=== PATIENT | female | born 1970 | race African-American/Black ===

== ENCOUNTER 2020-04-02 02:09 | Emergency (ER) | payer BC, OTHER ==
[~2020-04-02] VITALS: Ht 165.1 cm; Wt 81.9 kg
[~2020-04-02 02:09] MED LIST: LISI-378; OXYC1TAB15 PO
[2020-04-02 02:55] VITALS: BP 154/87
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
== END 2020-04-02 03:55 | disposition home or self-care (01) ==
LOC: ER 02:09
DX: R42 Dizziness and giddiness (principal); T43.215A Adverse effect of selective serotonin and norepinephrine reuptake inhibitors, initial encounter; I10 Essential (primary) hypertension; Z95.5 Presence of coronary angioplasty implant and graft; Z88.1 Allergy status to other antibiotic agents; Y92.89 Other specified places as the place of occurrence of the external cause
CPT/HCPCS: 36415; 99283

== ENCOUNTER 2020-04-06 16:17 | Emergency (ER) | payer SELFPAY ==
[~2020-04-06] VITALS: Ht 165.1 cm; Wt 90.9 kg
[2020-04-06 17:11] LABS: BASO % 1 % (0-3); EOS # 0.2 x10^3/uL (0.0-0.7); EOS % 3 % (0-3); HEMATOCRIT 36.8 % (36.0-47.0); HEMOGLOBIN 12.2 g/dL (12.0-15.5); LYMPH # 2.5 x10^3/uL (1.0-4.8); LYMPH % 38 % (24-48); MEAN CORPUSCULAR HEMOGLOBIN 28 pg (25-35); MEAN CORPUSCULAR HGB CONC 33 g/dL (31-37); MEAN CORPUSCULAR VOLUME 85 fL (79-100); MONO # 0.8 x10^3/uL (0.0-1.1); MONO % 12 % (0-9); NEUT # 2.9 x10^3/uL (1.8-7.7); NEUT % 45 % (31-73); PLATELET COUNT 222 x10^3/uL (140-400); RED BLOOD COUNT 4.36 x10^6/uL (3.50-5.40); RED CELL DISTRIBUTION WIDTH 14.2 % (11.5-14.5); WHITE BLOOD COUNT 6.4 x10^3/uL (4.0-11.0)
[2020-04-06 17:19] LABS: BILIRUBIN,URINE NEGATIVE (NEG); CLARITY,URINE CLEAR; COLOR,URINE YELLOW; NITRITE,URINE NEGATIVE (NEG); PH,URINE 5.5 (<5.0-8.0); PROTEIN,URINE NEGATIVE (NEG-TRACE); UROBILINOGEN,URINE 0.2 mg/dL (0.2 mg/dL)
[2020-04-06 17:26] LABS: BARBITURATES NEG (NEG); BENZODIAZEPINES NEG (NEG); CANNABINOIDS NEG (NEG); COCAINE NEG (NEG); METHADONE NEG (NEG); OPIATES NEG (NEG); PHENCYCLIDINE NEG (NEG)
[2020-04-06 17:28] LABS: AMPHETAMINE/METHAMPHETAMINE NEG (NEG)
[2020-04-06 17:32] LABS: BACTERIA,URINE MODERATE /HPF (0-FEW)
[2020-04-06 17:33] VITALS: BP 178/109
[2020-04-06 17:33] LABS: RBC,URINE 0 /HPF (0-2)
[2020-04-06 17:34] LABS: CALCIUM 9.1 mg/dL (8.5-10.1); GFR 71.9; POTASSIUM 3.6 mmol/L (3.5-5.1)
--- NOTE | 2020-04-06 17:36 | RAD ---
Chest, PA and Lateral: Technique: PA and lateral views of the chest were obtained. History: Chest pain. Comparison: None. Findings: The heart and pulmonary vasculature appear within normal limits. The lungs are clear. The pleural ma rgins are clear. Impression: No acute chest process is seen. Electronically signed by: Xiang Saleem MD (04/06/2020 5:34 PM) [id number]
[2020-04-06 17:39] LABS: ALBUMIN 3.8 g/dL (3.4-5.0); TOTAL BILIRUBIN 0.3 mg/dL (0.2-1.0); TOTAL PROTEIN 7.8 g/dL (6.4-8.2)
[2020-04-06 17:45] LABS: CREATINE KINASE 200 U/L (26-192)
[2020-04-06] MEDS ORDERED: PROCHLORPERAZINE 10 MG/2 ML VIAL. IV ONE (18:45)
[2020-04-06] MEDS ORDERED: IV NORMAL SALINE 1000ML BAG 1,000 ML IV ONE (18:45)
[2020-04-06] MEDS ORDERED: KETOROLAC 30 MG/ML VIAL. IVP ONE (18:45)
[2020-04-06] MEDS ORDERED: diphenhydrAMINE 50 MG/ML VIAL IVP ONE (18:45)
[2020-04-06] MEDS ORDERED: CYCL10TA2 PO (18:54)
[2020-04-06] MEDS ORDERED: IBUP-1007 PO (18:54)
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
[2020-04-06] MEDS ORDERED: CYCLOBENZAPRINE 10 MG TABLET. PO ONE (19:00)
[2020-04-06] MEDS ORDERED: ACETAMINOPHEN 500 MG TABLET PO ONE (19:00)
== END 2020-04-06 19:05 | disposition home or self-care (01) ==
LOC: ER 16:17
DX: S20.212A Contusion of left front wall of thorax, initial encounter (principal); R51.9 Headache, unspecified; I10 Essential (primary) hypertension; Z98.890 Other specified postprocedural states; V98.8XXA Other specified transport accidents, initial encounter; Y93.89 Activity, other specified; Y92.413 State road as the place of occurrence of the external cause; Y99.8 Other external cause status
CPT/HCPCS: 36415; 71046; 80053; 80307; 81001; 82553; 84484; 85025; 87086; 93005; 99285; G0480